=== PATIENT | female | born 1970 | race Caucasian/White ===

== ENCOUNTER 2021-04-25 03:06 | Emergency (ER) | payer SELFPAY | END 2021-04-25 10:55 | disposition home or self-care (01) | LOC: ERS 03:06 | DX: F10.129 Alcohol abuse with intoxication, unspecified (principal) | CPT/HCPCS: 93005 ==

== ENCOUNTER 2022-05-04 23:41 | Emergency (ER) | payer SELFPAY ==
[2022-05-05 00:21] LABS: Hemoglobin 13.4 g/dL (12.0-16.0); Mean Corpuscular HGB CONC 33.6 g/dL (32.0-36.0); Mean Corpuscular Hemoglobin 35.9 pg (27.0-31.0); Mean Platelet Volume 6.9 fL (7.4-10.4); Platelet Count 173 thou/uL (130-400); RBC Distribution Width 11.4 % (11.5-14.5); Red Blood Cell (RBC) Count 3.75 mill/uL (4.20-5.40); White Blood Cell (WBC) Count 6.1 thou/uL (4.8-10.8)
[2022-05-05 00:22] LABS: Bilirubin Negative (Negative); Blood, Urine Negative (Negative); Clarity Clear (Clear); Glucose, Urine (Dipstick) Normal (Negative); Ketone, Urine Negative (Negative); Leukocyte Negative Leu/uL (Negative); Nitrite Negative (Negative); Protein, Urine (Dipstick) Negative (Neg-Trace); Specific Gravity, Urine 1.006 (1.002-1.036); Urobilinogen Normal mg/dL (Less than 2)
[2022-05-05 00:30] LABS: Amphetamine Not Detected (NotDetected); Barbiturates Screen Not Detected (NotDetected); Benzodiazepine Screen Detected (NotDetected); Cocaine Metabolite Screen Not Detected (NotDetected); Methadone Not Detected (NotDetected); Methamphetamine Not Detected (NotDetected); Opiate Screen Not Detected (NotDetected); Oxycodone Screen Not Detected (NotDetected); Phencyclidine (PCP) Not Detected (NotDetected); THC/Cannabinoid Screen Not Detected (NotDetected); Tricyclic Screen Not Detected (NotDetected)
[2022-05-05 00:32] LABS: Acetaminophen Less than 10.0 mcg/mL (10.0-30.0); Alcohol 154 mg/dL (Less than 10); CK (CPK) 78 U/L (29-168); Salicylate Less than 8.0 mg/dL (15.0-30.0)
[2022-05-05 00:33] LABS: ALT (SGPT) 44 U/L (8-55); AST (SGOT) 36 U/L (5-34); Albumin 4.3 g/dL (3.5-5.0); Alkaline Phosphatase 70 U/L (40-110); Anion Gap 13 mmol/L (10-20); BUN (Urea Nitrogen) 7 mg/dL (9.8-20.1); Bilirubin, Total 0.2 mg/dL (0.2-1.2); Calc. Creatinine Clearance 0 mL/min (70-130); Calcium 9.1 mg/dL (7.8-10.44); Carbon Dioxide 27 mmol/L (22-29); Chloride 106 mmol/L (98-107); Estimated GFR 105; Globulin 2.7 g/dL (2.4-3.5); Glucose 101 mg/dL (70-105); Magnesium 1.8 mg/dL (1.6-2.6); Potassium 3.9 mmol/L (3.5-5.1); Sodium 142 mmol/L (136-145)
[2022-05-05] MEDS ORDERED: Lorazepam 1 MG TAB ONE ×3 (00:53→07:52)
[2022-05-05 00:54] LABS: #Eosinphils 0.1 thou/uL (0.0-0.7); #Lymphocytes 2.8 thou/uL (1.20-3.40); #Monocytes 0.4 thou/uL (0.11-0.59); #Neutrophils 2.7 thou/uL (1.40-6.50); %Basophils 0.4 % (0.0-1.0); %Eosinophils 1.8 % (0.0-10.0); %Lymphocytes 46.2 % (21.0-51.0); %Monocytes 6.7 % (0.0-10.0); %Neutrophils 44.9 % (42.0-75.0); Band 2 % (5-11); Eosinophils 3 % (0-10); Lymphocytes 54 % (21-51); MDiff Complete? YES; Macrocytosis MODERATE=16-30 cells (100X) (0-5/hpf); Monocytes 2 % (0-10); Neutrophil 39 % (42-75); Ovalocytes SLIGHT = 2-5 cells (100X) (0-1/hpf); Platelet Morphology Comment Appears Adequate
== END 2022-05-05 09:33 | disposition short-term general hospital (02) ==
LOC: ERS 23:41
DX: T45.0X2A Poisoning by antiallergic and antiemetic drugs, intentional self-harm, initial encounter (principal); T45.2X1A Poisoning by vitamins, accidental (unintentional), initial encounter; F32.9 Major depressive disorder, single episode, unspecified; G40.909 Epilepsy, unspecified, not intractable, without status epilepticus
CPT/HCPCS: 36415; 80053; 80306; 80307; 81003; 82550; 83735; 84443; 85025; 99285

== ENCOUNTER 2022-05-28 22:45 | Emergency (ER) | payer SELFPAY ==
[2022-05-28 23:48] LABS: Anion Gap 17 mmol/L (10-20); BUN (Urea Nitrogen) 11 mg/dL (9.8-20.1); Calc. Creatinine Clearance 0 mL/min (70-130); Calcium 8.8 mg/dL (7.8-10.44); Carbon Dioxide 20 mmol/L (22-29); Chloride 111 mmol/L (98-107); Estimated GFR 96; Glucose 105 mg/dL (70-105); Magnesium 1.8 mg/dL (1.6-2.6); Potassium 3.7 mmol/L (3.5-5.1); Sodium 144 mmol/L (136-145)
== END 2022-05-29 00:41 | disposition home or self-care (01) ==
LOC: ERS 22:45
DX: S09.90XA Unspecified injury of head, initial encounter (principal); G40.909 Epilepsy, unspecified, not intractable, without status epilepticus; W19.XXXA Unspecified fall, initial encounter
CPT/HCPCS: 36415; 70450; 72125; 80048; 83735

== ENCOUNTER 2022-07-17 16:08 | Observation (INO) | payer SELFPAY ==
[2022-07-17] MEDS ORDERED: Fosphenytoin Sodium 500 mg/10 ml Vial ONE ×2 (16:38→16:39)
[2022-07-17] MEDS ORDERED: levETIRAcetam 500 MG/5 ML VIAL ONE (16:49)
[2022-07-17 17:07] LABS: #Eosinphils 0.1 thou/uL (0.0-0.7); #Lymphocytes 1.6 thou/uL (1.20-3.40); #Monocytes 0.6 thou/uL (0.11-0.59); #Neutrophils 2.9 thou/uL (1.40-6.50); %Basophils 0.5 % (0.0-1.0); %Eosinophils 1.8 % (0.0-10.0); %Lymphocytes 30.9 % (21.0-51.0); %Monocytes 11.2 % (0.0-10.0); %Neutrophils 55.6 % (42.0-75.0); Hemoglobin 13.2 g/dL (12.0-16.0); Mean Corpuscular HGB CONC 34.3 g/dL (32.0-36.0); Mean Corpuscular Hemoglobin 35.6 pg (27.0-31.0); Mean Platelet Volume 6.8 fL (7.4-10.4); Platelet Count 158 thou/uL (130-400); RBC Distribution Width 11.3 % (11.5-14.5); Red Blood Cell (RBC) Count 3.71 mill/uL (4.20-5.40); White Blood Cell (WBC) Count 5.2 thou/uL (4.8-10.8)
[2022-07-17 17:26] LABS: ALT (SGPT) 38 U/L (8-55); AST (SGOT) 42 U/L (5-34); Albumin 4.3 g/dL (3.5-5.0); Alcohol 238 mg/dL (Less than 10); Alkaline Phosphatase 86 U/L (40-110); Anion Gap 19 mmol/L (10-20); BUN (Urea Nitrogen) 9 mg/dL (9.8-20.1); Bilirubin, Total 0.3 mg/dL (0.2-1.2); Calc. Creatinine Clearance 0 mL/min (70-130); Calcium 8.8 mg/dL (7.8-10.44); Carbon Dioxide 16 mmol/L (22-29); Chloride 103 mmol/L (98-107); Estimated GFR 105; Globulin 2.8 g/dL (2.4-3.5); Glucose 90 mg/dL (70-105); Protein, Total 7.1 g/dL (6.0-8.3); Sodium 134 mmol/L (136-145)
[2022-07-17] MEDS ORDERED: Ketorolac Tromethamine 30 MG/ML VIAL ONE (18:37)
[2022-07-17] MEDS ORDERED: Multivitamin W/ Minerals 1 TAB PO SCH (20:15)
[2022-07-17 21:04] LABS: Phosphorus 2.9 mg/dL (2.3-4.7)
[2022-07-17 21:05] LABS: Magnesium 1.7 mg/dL (1.6-2.6)
[2022-07-17] MEDS: Acetaminophen 325 MG TAB PO PRN (21:41)
[2022-07-17] MEDS: ALPRAZolam 1 MG TAB PO PRN (21:41)
[2022-07-17] MEDS: Lactated Ringer's 1,000 ML IV SCH (21:42)
[2022-07-17] MEDS: Ondansetron ODT 4 MG TAB PO PRN (21:48)
[2022-07-17] MEDS ORDERED: Ketorolac Tromethamine 30 MG/ML VIAL IVP SCH (23:00)
[2022-07-17 23:40] LABS: Amphetamine Not Detected (NotDetected); Barbiturates Screen Not Detected (NotDetected); Benzodiazepine Screen Detected (NotDetected); Cocaine Metabolite Screen Not Detected (NotDetected); Methadone Not Detected (NotDetected); Methamphetamine Not Detected (NotDetected); Opiate Screen Not Detected (NotDetected); Oxycodone Screen Not Detected (NotDetected); Phencyclidine (PCP) Not Detected (NotDetected); THC/Cannabinoid Screen Not Detected (NotDetected); Tricyclic Screen Not Detected (NotDetected)
[2022-07-18] MEDS ORDERED: Methocarbamol 500 MG TAB PO PRN (04:57)
[2022-07-18] MEDS ORDERED: levETIRAcetam in NS 500 MG in Premix Bag 1 BAG IVPB SCH (05:00)
[2022-07-18] MEDS: levETIRAcetam 500 MG TAB PO SCH ×2 (05:08→17:50)
[2022-07-18 05:34] LABS: ALT (SGPT) 35 U/L (8-55); AST (SGOT) 37 U/L (5-34); Albumin 3.6 g/dL (3.5-5.0); Alkaline Phosphatase 75 U/L (40-110); Anion Gap 9 mmol/L (10-20); BUN (Urea Nitrogen) 8 mg/dL (9.8-20.1); Bilirubin, Total 0.5 mg/dL (0.2-1.2); Calc. Creatinine Clearance 91 mL/min (70-130); Calcium 8.7 mg/dL (7.8-10.44); Carbon Dioxide 27 mmol/L (22-29); Chloride 106 mmol/L (98-107); Estimated GFR 106; Globulin 2.4 g/dL (2.4-3.5); Glucose 76 mg/dL (70-105); Sodium 138 mmol/L (136-145)
[2022-07-18 05:36] LABS: Band 2 % (5-11); Eosinophils 2 % (0-10); Hemoglobin 12.2 g/dL (12.0-16.0); Lymphocytes 61 % (21-51); MDiff Complete? YES; Mean Corpuscular HGB CONC 33.7 g/dL (32.0-36.0); Mean Corpuscular Hemoglobin 35.6 pg (27.0-31.0); Mean Platelet Volume 6.9 fL (7.4-10.4); Monocytes 9 % (0-10); Neutrophil 24 % (42-75); Platelet Count 138 thou/uL (130-400); RBC Distribution Width 11.3 % (11.5-14.5); Reactive Lymphocytes 2 % (0-10); Red Blood Cell (RBC) Count 3.42 mill/uL (4.20-5.40); White Blood Cell (WBC) Count 3.8 thou/uL (4.8-10.8)
[2022-07-18] MEDS: Lactated Ringer's 1,000 ML IV SCH ×2 (08:26→20:36)
[2022-07-18] MEDS: Thiamine 100 MG TAB PO SCH (08:26)
[2022-07-18] MEDS: Multivitamin W/ Minerals 1 TAB PO SCH (08:26)
[2022-07-18] MEDS: Folic Acid 1 MG TAB PO SCH (08:27)
[2022-07-18] MEDS ORDERED: levETIRAcetam 500 MG TAB PO SCH (09:00)
[2022-07-18] MEDS: Ondansetron ODT 4 MG TAB PO PRN ×2 (12:01→20:37)
[2022-07-18] MEDS: Acetaminophen 325 MG TAB PO PRN ×2 (12:16→20:36)
[2022-07-18] MEDS: Cyclobenzaprine 10 MG TAB PO PRN ×2 (13:22→20:37)
[2022-07-18] MEDS ORDERED: Ketorolac Tromethamine 30 MG/ML VIAL IVP SCH (15:15)
[2022-07-18] MEDS: ALPRAZolam 1 MG TAB PO PRN (20:37)
[2022-07-18] MEDS ORDERED: traMADol HCl 50 MG TAB PO SCH (22:30)
[2022-07-19] MEDS ORDERED: Morphine 4 MG/ML VIAL SLOW IVP SCH (04:00)
[2022-07-19] MEDS: levETIRAcetam 500 MG TAB PO SCH ×2 (04:07→16:56)
[2022-07-19] MEDS ORDERED: hydrOXYzine 10 MG TAB PO SCH (06:31)
[2022-07-19] MEDS: Lactated Ringer's 1,000 ML IV SCH (06:44)
[2022-07-19] MEDS: Cyclobenzaprine 10 MG TAB PO PRN (10:11)
[2022-07-19] MEDS: Thiamine 100 MG TAB PO SCH (10:11)
[2022-07-19] MEDS: Multivitamin W/ Minerals 1 TAB PO SCH (10:11)
[2022-07-19] MEDS: Folic Acid 1 MG TAB PO SCH (10:11)
[2022-07-19] MEDS ORDERED: Ketorolac Tromethamine 30 MG/ML VIAL IVP SCH (11:15)
[2022-07-19 12:12] VITALS: TEMP 98.1
[2022-07-19 16:29] VITALS: BP 104/71
== END 2022-07-19 17:25 | disposition home or self-care (01) ==
LOC: ERS 16:08 → NEURO 19:45
PROVIDERS: ADMIT Emergency Medicine; ATTEND Emergency Medicine
DX: R56.9 Unspecified convulsions (principal); G47.00 Insomnia, unspecified; R11.0 Nausea; F41.9 Anxiety disorder, unspecified; F32.A Depression, unspecified; Z72.89 Other problems related to lifestyle; Z79.899 Other long term (current) drug therapy; Z88.0 Allergy status to penicillin; Z88.5 Allergy status to narcotic agent; Z91.041 Radiographic dye allergy status; Z90.3 Acquired absence of stomach [part of]; Z90.49 Acquired absence of other specified parts of digestive tract; Z20.822 Contact with and (suspected) exposure to COVID-19; Y90.7 Blood alcohol level of 200-239 mg/100 ml
CPT/HCPCS: 36415; 80053; 80306; 80307; 83735; 84100; 84146; 84443; 85025; 93005; 95816; 95819; 95957; 96375; 96376; G0378; J1885; J1953; J2270; J7120; Q0162; Q2009; U0003; U0005

== ENCOUNTER 2022-08-05 21:51 | Emergency (ER) | payer SELFPAY ==
[2022-08-05 22:53] LABS: #Basophils 0.1 thou/uL (0.0-0.2); #Eosinphils 0.1 thou/uL (0.0-0.7); #Lymphocytes 1.4 thou/uL (1.20-3.40); #Monocytes 0.4 thou/uL (0.11-0.59); #Neutrophils 2.8 thou/uL (1.40-6.50); %Basophils 1.3 % (0.0-1.0); %Eosinophils 2.3 % (0.0-10.0); %Monocytes 8.4 % (0.0-10.0); %Neutrophils 57.9 % (42.0-75.0); Hemoglobin 13.1 g/dL (12.0-16.0); Mean Corpuscular HGB CONC 34.5 g/dL (32.0-36.0); Mean Corpuscular Hemoglobin 36.5 pg (27.0-31.0); Mean Platelet Volume 6.9 fL (7.4-10.4); Platelet Count 151 thou/uL (130-400); RBC Distribution Width 11.5 % (11.5-14.5); Red Blood Cell (RBC) Count 3.59 mill/uL (4.20-5.40); White Blood Cell (WBC) Count 4.8 thou/uL (4.8-10.8)
[2022-08-05 23:09] LABS: ALT (SGPT) 70 U/L (8-55); AST (SGOT) 103 U/L (5-34); Albumin 4.3 g/dL (3.5-5.0); Alkaline Phosphatase 82 U/L (40-110); Anion Gap 18 mmol/L (10-20); BUN (Urea Nitrogen) 9 mg/dL (9.8-20.1); Bilirubin, Total 0.3 mg/dL (0.2-1.2); Calc. Creatinine Clearance 0 mL/min (70-130); Calcium 8.7 mg/dL (7.8-10.44); Carbon Dioxide 22 mmol/L (22-29); Chloride 104 mmol/L (98-107); Estimated GFR 105; Globulin 2.8 g/dL (2.4-3.5); Glucose 85 mg/dL (70-105); Protein, Total 7.1 g/dL (6.0-8.3); Sodium 140 mmol/L (136-145)
[2022-08-06] MEDS ORDERED: Ketorolac Tromethamine 30 MG/ML VIAL ONE
[2022-08-06] MEDS ORDERED: Acetaminophen 500 MG TAB ONE (00:25)
[2022-08-06] MEDS ORDERED: levETIRAcetam 500 MG/5 ML VIAL ONE ×2 (00:36→00:40)
[2022-08-06] MEDS ORDERED: Ziprasidone 20 MG VIAL ONE (00:47)
== END 2022-08-06 01:52 | disposition home or self-care (01) ==
LOC: ERS 21:51
DX: R56.9 Unspecified convulsions (principal); R25.2 Cramp and spasm
CPT/HCPCS: 36415; 71045; 80053; 84443; 84484; 85025; 93005; 96372; 96374; 96375; J1885; J1953; J3486

== ENCOUNTER 2022-10-21 21:44 | Emergency (ER) | payer SELFPAY ==
[~2022-10-21 21:44] MED LIST: Iopamidol-370 76% 500 ML 1 ML ONE
[2022-10-21] MEDS ORDERED: methylPREDNISolone Sod Succ 40 MG VIAL ONE (22:42)
[2022-10-21] MEDS ORDERED: Famotidine/PF 20 mg/2ml Vial ONE (22:42)
[2022-10-21] MEDS ORDERED: diphenhydrAMINE 50 MG/ML VIAL ONE (22:42)
[2022-10-21] MEDS ORDERED: Ketorolac Tromethamine 30 MG/ML VIAL ONE (22:42)
[2022-10-21] MEDS ORDERED: Ondansetron PF 4 MG/2 ML Vial ONE (22:43)
[2022-10-21 23:21] LABS: Amphetamine Not Detected (NotDetected); Barbiturates Screen Not Detected (NotDetected); Benzodiazepine Screen Detected (NotDetected); Cocaine Metabolite Screen Not Detected (NotDetected); Methadone Not Detected (NotDetected); Methamphetamine Not Detected (NotDetected); Opiate Screen Not Detected (NotDetected); Oxycodone Screen Not Detected (NotDetected); Phencyclidine (PCP) Not Detected (NotDetected); THC/Cannabinoid Screen Not Detected (NotDetected); Tricyclic Screen Not Detected (NotDetected)
[2022-10-21] MEDS ORDERED: LORazepam 2 MG/ML SYR.(CARPUJECT) ONE (23:28)
[2022-10-21 23:29] LABS: Acetaminophen Less than 10.0 mcg/mL (10.0-30.0); Alcohol 272 mg/dL (Less than 10); Salicylate Less than 8.0 mg/dL (15.0-30.0)
[2022-10-21 23:35] LABS: ALT (SGPT) 53 U/L (8-55); AST (SGOT) 62 U/L (5-34); Albumin 4.1 g/dL (3.5-5.0); Alcohol 279 mg/dL (Less than 10); Alkaline Phosphatase 88 U/L (40-110); Anion Gap 24 mmol/L (10-20); BUN (Urea Nitrogen) 9 mg/dL (9.8-20.1); Bilirubin, Total 0.3 mg/dL (0.2-1.2); Calc. Creatinine Clearance 0 mL/min (70-130); Calcium 8.6 mg/dL (7.8-10.44); Carbon Dioxide 11 mmol/L (22-29); Chloride 109 mmol/L (98-107); Estimated GFR 105; Globulin 3.8 g/dL (2.4-3.5); Glucose 72 mg/dL (70-105); Potassium 3.9 mmol/L (3.5-5.1); Protein, Total 7.9 g/dL (6.0-8.3); Sodium 140 mmol/L (136-145)
[2022-10-22 00:09] LABS: Hemoglobin 12.2 g/dL (12.0-16.0); Mean Corpuscular HGB CONC 35.2 g/dL (32.0-36.0); Mean Corpuscular Hemoglobin 37.1 pg (27.0-31.0); White Blood Cell (WBC) Count 5.4 10x3/uL (4.8-10.8)
[2022-10-22 00:48] LABS: Band 1 % (5-11); Eosinophils 1 % (0-10); Lymphocytes 60 % (21-51); MDiff Complete? YES; Macrocytosis SLIGHT = 6-15 cells (100X) (0-5/hpf); Monocytes 8 % (0-10); Neutrophil 28 % (42-75); Ovalocytes SLIGHT = 2-5 cells (100X) (0-1/hpf); Platelet Count 146 10x3/uL (130-400); Platelet Morphology Comment Appears Adequate; RBC Distribution Width 12.2 % (11.5-14.5); Reactive Lymphocytes 2 % (0-10)
== END 2022-10-22 06:45 | disposition home or self-care (01) ==
LOC: ERS 21:44
DX: R56.9 Unspecified convulsions (principal)
CPT/HCPCS: 36415; 74177; 80053; 80306; 80307; 85025; 93005; 96374; 96375; J1200; J1885; J2060; J2405; J2920; Q9967; S0028